=== PATIENT | male | born 1945 ===

== ENCOUNTER 2017-03-13 01:37 | Observation (INO) | payer BC ==
--- NOTE | 2017-03-13 02:48 | ED PDOC ---
HPI: Psych/Substance Abuse Time Seen by Provider: 03/13/17 01:53 Chief Complaint (Nursing): Alcohol Ingestion Chief Complaint (Provider): Alcohol Ingestion History Per: Patient History/Exam Limitations: no limitations Onset/Duration Of Symptoms: Mins (prior to arrival) Current Symptoms Are (Timing): Still Present Additional Complaint(s): Suman Quinn is a 71 year old male who presents to the emergency department for an evaluation of head injury status post falling and landing on back of his head while intoxicated prior to arrival. Patient is unsure about loss of consciousness. PMD: none provided Past Medical History Reviewed: Historical Data, Nursing Documentation, Vital Signs Vital Signs: Last Vital Signs Temp 98.6 F 03/13/17 01:44 Pulse 79 03/13/17 01:44 Resp 16 03/13/17 01:44 BP 111/76 03/13/17 01:44 Pulse Ox 96 03/13/17 01:44 - Medical History PMH: Gastritis, HTN Denies: Diabetes, Hepatitis, HIV, Chronic Kidney Disease, Seizures, Sexually Transmitted Disease - Family History Family History: States: Unknown Family Hx - Social History Current smoker - smoking cessation education provided: No Alcohol: Occasional Drugs: Denies - Allergies Allergies/Adverse Reactions: Allergies Allergy/AdvReac Type Severity Reaction Status Date / Time No Known Allergies Allergy Verified 03/13/17 01:43 Review of Systems ROS Statement: Except As Marked, All Systems Reviewed And Found Negative Constitutional: Negative for: Other (loss of conciousness?) Neurological: Positive for: Other (posterior head injury) Physical Exam - Reviewed Nursing Documentation Reviewed: Yes Vital Signs Reviewed: Yes - Physical Exam Appears: Positive for: Well, Non-toxic, No Acute Distress Head Exam: Positive for: NORMOCEPHALIC (with hematoma and abrasions to back of head ). Negative for: ATRAUMATIC Skin: Positive for: Normal Color, Warm, DRY Cardiovascular/Chest: Positive for: Regular Rate, Rhythm. Negative for: Chest Non Tender Respiratory: Positive for: Normal Breath Sounds. Negative for: Crackles, Rales , Rhonchi, Wheezing, Respiratory Distress Extremity: Positive for: Normal ROM (with abrasion to left knee). Negative for : Pedal Edema, Deformity, Swelling, Other (laceration) Neurologic/Psych: Positive for: Alert - ECG O2 Sat by Pulse Oximetry: 96 (RA) Pulse Ox Interpretation: Normal Medical Decision Making Medical Decision Making: Initial Impression: ETOH intoxication with head injury Initial Plan: * CT cspine without contrast * CT head without contrast * Accucheck * Admit to hospital Time: 407 --CT head FINDINGS: Limitations: Motion artifact - mild to moderate. Brain: Minimal atrophy. No definite intracranial hemorrhage. No mass. No definite edema. Ventricles: No hydrocephalus. Bones/joints: No definite acute fracture. Soft tissues: Parietal soft tissue swelling. Sinuses: No acute sinusitis. Mastoid air cells: No mastoid effusion. Orbits: Unremarkable as visualized. IMPRESSION: 1. No definite intracranial hemorrhage Time: 422 --CT Cspine FINDINGS: Vertebrae: No acute fracture. Straightening of cervical spine. Facet osteoarthrosis within cervical spine. Discs/spinal canal/neural foramina: Early degenerative disc disease within mid cervical spine. Moderate to severe degenerative disc disease within lower cervical spine. Apparent disc herniation within lower cervical spine, suboptimally evaluated. Mild indentation thecal sac /cord lower cervical spine. Neuroforaminal narrowing with mid and lower cervical spine. Soft tissues: Unremarkable. Vasculature: Minimal atherosclerotic disease. Thyroid: 2.0 x 1.4 x 1.8 cm nodule RIGHT lobe. Lung apices: 0.2 cm LEFT upper lobe nodule vs volume averaging. IMPRESSION: 1. No fracture. 2. Thyroid nodule. Followup as clinically warranted. 3. Incidental/non-acute findings are described above Scribe Attestation: Documented by Natalie Vanegas, acting as a scribe for Gamal Portillo MD. Provider Scribe Attestation: All medical record entries made by the Scribe were at my direction and personally dictated by me. I have reviewed the chart and agree that the record accurately reflects my personal performance of the history, physical exam, medical decision making, and the department course for this patient. I have also personally directed, reviewed, and agree with the discharge instructions and disposition. ED OBSERVATION Date of observation admission: 03/13/17 Time of observation admission: 01:54 - Observation admission statement Patient is being placed in observation because:: ETOH intoxication and CT scan - Goals of Observation Goals of observation are:: clinical sobriety and CT results - Progress Note Progress Note: Time: 0330 --Patient is resting comfortably with stable vital signs. Time: 0500 --Patient continues to rest comfortably with stable vitals. Time: 0630 --Patient continues to rest comfortably with stable vitals. Time: 0700 --will sign out to day team pending sobriety and knee xray Disposition - Clinical Impression Clinical Impression: Alcohol abuse with intoxication - Patient ED Disposition Is Patient to be Admitted: Transfer of Care - Disposition Disposition: Transfer of Care Disposition Time: 01:54 Condition: STABLE Patient Signed Over To: Luis Armando Ho Handoff Comments: pending sobriety and knee xray
--- NOTE | 2017-03-13 04:09 | CT ---
EXAM: CT Head Without Intravenous Contrast CLINICAL HISTORY: 71 years old, male; Injury or trauma; Fall; Initial encounter; Concussion / head injury; Without loss of consciousness; Additional info: ETOH, head trauma TECHNIQUE: Axial computed tomography images of the head/brain without intravenous contrast. All CT scans at this facility use one or more dose reduction techniques, viz.: automated exposure control; ma/kV adjustment per patient size (including targeted exams where dose is matched to indication; i.e. head); or iterative reconstruction technique. Coronal and sagittal reformatted images were created and reviewed. COMPARISON: No relevant prior studies available. FINDINGS: Limitations: Motion artifact - mild to moderate. Brain: Minimal atrophy. No definite intracranial hemorrhage. No mass. No definite edema. Ventricles: No hydrocephalus. Bones/joints: No definite acute fracture. Soft tissues: Parietal soft tissue swelling. Sinuses: No acute sinusitis. Mastoid air cells: No mastoid effusion. Orbits: Unremarkable as visualized. IMPRESSION: 1. No definite intracranial hemorrhage.
--- NOTE | 2017-03-13 04:23 | CT ---
EXAM: CT Cervical Spine Without Intravenous Contrast CLINICAL HISTORY: 71 years old, male; Injury or trauma; Fall; Initial encounter; Concussion /head injury; Additional info: Head trauma, ETOH TECHNIQUE: Axial computed tomography images of the cervical spine without intravenous contrast. All CT scans at this facility use one or more dose reduction techniques, viz.: automated exposure control; ma/kV adjustment per patient size (including targeted exams where dose is matched to indication; i.e. head); or iterative reconstruction technique. COMPARISON: No relevant prior studies available. FINDINGS: Vertebrae: No acute fracture. Straightening of cervical spine. Facet osteoarthrosis within cervical spine. Discs/spinal canal/neural foramina: Early degenerative disc disease within mid cervical spine. Moderate to severe degenerative disc disease within lower cervical spine. Apparent disc herniation within lower cervical spine, suboptimally evaluated. Mild indentation thecal sac/cord lower cervical spine. Neuroforaminal narrowing with mid and lower cervical spine. Soft tissues: Unremarkable. Vasculature: Minimal atherosclerotic disease. Thyroid: 2.0 x 1.4 x 1.8 cm nodule RIGHT lobe. Lung apices: 0.2 cm LEFT upper lobe nodule vs volume averaging. IMPRESSION: 1. No fracture. 2. Thyroid nodule. Followup as clinically warranted. 3. Incidental/non-acute findings are described above.
--- NOTE | 2017-03-13 12:39 | RAD ---
HISTORY: s/p fall, r/o fracture COMPARISON: No prior FINDINGS: BONES: Normal. No fracture. JOINTS: Normal. No osteoarthritis. SOFT TISSUE: Normal. OTHER FINDINGS: None . IMPRESSION: Normal Bone Xray.
--- NOTE | 2017-03-13 13:37 | ED PDOC ---
- ECG O2 Sat by Pulse Oximetry: 96 (RA) Pulse Ox Interpretation: Normal Medical Decision Making Medical Decision Making: Time: 8:00 --Patient is signed out to me by Dr. Gamal Portillo, pending clinical sobriety and final disposition *See ED-OBS for further documentation Scribe Attestation: Documented by Xiao Ceron, acting as a scribe for Luis Armando Ho MD Provider Scribe Attestation: All medical record entries made by the Scribe were at my direction and personally dictated by me. I have reviewed the chart and agree that the record accurately reflects my personal performance of the history, physical exam, medical decision making, and the department course for this patient. I have also personally directed, reviewed, and agree with the discharge instructions and disposition. Disposition Counseled Patient/Family Regarding: Diagnosis, Need For Followup - Clinical Impression Clinical Impression: Alcohol abuse with intoxication - POA Present On Arrival: None - Disposition Disposition: Routine/Home Disposition Time: 01:54 Condition: STABLE ED OBSERVATION Date of observation admission: 03/13/17 Time of observation admission: 01:54 - Observation admission statement Patient is being placed in observation because:: ETOH intoxication - Goals of Observation Goals of observation are:: Clinical sobriety - Progress Note Progress Note: 03/13/17 Time: 8:00 --Patient is resting comfortably. Vital signs stable. Time: 9:30 --Patient continues to rest. Vital signs stable. Time: 11:00 --Patient is resting comfortably. Vital signs stable. Time: 12:30 --Patient continues to rest. Vital signs stable. --Still pending clinical sobriety. Time: 13:20 --Patient is ambulatory, with steady gait. No signs intoxication, no other complaints at this time. He denies suicidal and homicidal ideations, hallucinations, and depression. --Patient is medically stable for discharge Clinical Impression: Alcohol abuse with intoxication
[2017-03-13 16:02] VITALS: BP 128/76; PULSE 76; RESP 18; TEMP 98; O2SAT 97
== END 2017-03-13 01:54 | disposition home or self-care (01) ==
LOC: H.ER 01:37 → H.EROBSV 01:54
PROVIDERS: ADMIT Emergency Medicine; ATTEND Emergency Medicine
DX: F10.129 Alcohol abuse with intoxication, unspecified (principal); S09.90XA Unspecified injury of head, initial encounter; I10 Essential (primary) hypertension; K29.70 Gastritis, unspecified, without bleeding; F17.200 Nicotine dependence, unspecified, uncomplicated; Y90.7 Blood alcohol level of 200-239 mg/100 ml; Y92.9 Unspecified place or not applicable; W19.XXXA Unspecified fall, initial encounter
CPT/HCPCS: 70450; 72125; 73562; 82948; 96374; 99285; G0378; G0480; J2405

== ENCOUNTER 2017-03-13 22:20 | Observation (INO) | payer BC ==
[2017-03-13 22:25] VITALS: BP 138/76; PULSE 74; RESP 18; TEMP 98; O2SAT 99
--- NOTE | 2017-03-13 22:47 | ED PDOC ---
HPI: Psych/Substance Abuse Time Seen by Provider: 03/13/17 22:26 Chief Complaint (Nursing): Alcohol Ingestion History Per: Patient, EMS History/Exam Limitations: intoxication Additional Complaint(s): Pt. found outside near his house lying down. Admits to drinking 2 beers today. Also states he sustained injuries to both his knees and his head yesterday for which he was seen for in [facility] ED. Denies new trauma. Offers no complaints at this time. Past Medical History Reviewed: Historical Data, Nursing Documentation, Vital Signs Vital Signs: Last Vital Signs Temp 98 F 03/13/17 22:22 Pulse 74 03/13/17 22:22 Resp 18 03/13/17 22:22 BP 138/76 03/13/17 22:22 Pulse Ox 99 03/13/17 22:22 - Medical History PMH: Gastritis, HTN Denies: Diabetes, Hepatitis, HIV, Chronic Kidney Disease, Seizures, Sexually Transmitted Disease - Family History Family History: States: Unknown Family Hx - Allergies Allergies/Adverse Reactions: Allergies Allergy/AdvReac Type Severity Reaction Status Date / Time No Known Allergies Allergy Verified 03/13/17 01:43 Review of Systems ROS Statement: Except As Marked, All Systems Reviewed And Found Negative Physical Exam - Reviewed Nursing Documentation Reviewed: Yes Vital Signs Reviewed: Yes - Physical Exam Appears: Positive for: Well, Non-toxic, No Acute Distress Head Exam: Positive for: ATRAUMATIC (superficial abrasions on occipital scalp). Negative for: NORMAL INSPECTION, NORMOCEPHALIC Skin: Positive for: Normal Color, Warm. Negative for: Rash Eye Exam: Positive for: EOMI, Normal appearance, PERRL ENT: Positive for: Normal ENT Inspection Neck: Positive for: Normal, Painless ROM Cardiovascular/Chest: Positive for: Regular Rate, Rhythm Respiratory: Positive for: CNT, Normal Breath Sounds Gastrointestinal/Abdominal: Positive for: Normal Exam, Bowel Sounds, Soft. Negative for: Tenderness Back: Positive for: Normal Inspection Extremity: Positive for: Normal ROM (of both lower extremities actively), Other (superficial abrasions noted on to both knees; no hip/pelvic tenderness b/l) Neurologic/Psych: Positive for: Alert, Oriented, Gait (steady unassisted), Other (no slurred speech). Negative for: Aphasia, Facial Droop - ECG O2 Sat by Pulse Oximetry: 99 ED OBSERVATION Discharge: Yes Date of observation admission: 03/13/17 Time of observation admission: 22:47 - Observation admission statement Patient is being placed in observation because:: ETOH - Progress Note Progress Note: 03/13/17 23:42 ETOH < 10 Disposition - Clinical Impression Clinical Impression: Alcohol intoxication - Patient ED Disposition Is Patient to be Admitted: No - Disposition Disposition: Routine/Home Disposition Time: 23:43 Condition: STABLE
== END 2017-03-13 23:44 | disposition home or self-care (01) ==
LOC: H.ER 22:20 → H.EROBSV 22:39
PROVIDERS: ADMIT Emergency Medicine; ATTEND Emergency Medicine
DX: F10.129 Alcohol abuse with intoxication, unspecified (principal); I10 Essential (primary) hypertension; K29.70 Gastritis, unspecified, without bleeding
CPT/HCPCS: 36415; 82948; 99283; G0378; G0480